=== PATIENT | female | born 1945 | race Two or more races ===

== ENCOUNTER 2020-02-02 18:56 | Emergency (ER) | payer MEDICARE ==
[~2020-02-02] VITALS: Ht 160 cm; Wt 55.0 kg
[2020-02-02 19:44] LABS: BASOPHILS # (AUTO) 0.04 x10^3/uL (0-0.1); BASOPHILS % (AUTO) 1 % (0-1); EOSINOPHILS # (AUTO) 0.23 x10^3/uL (0-0.4); EOSINOPHILS % (AUTO) 3 % (1-7); LYMPHOCYTES # (AUTO) 2.25 x10^3/uL (1-3.4); LYMPHOCYTES % (AUTO) 30 % (22-44); MD NO; MEAN CORPUSCULAR HEMOGLOBIN 30.6 pg (27.0-34.8); MEAN CORPUSCULAR HGB CONC 33.6 g/dL (32.4-35.8); MEAN CORPUSCULAR VOLUME 91.1 fL (80-100); MEAN PLATELET VOLUME 9.3 fL (7.4-10.4); MONOCYTES # (AUTO) 0.34 x10^3/uL (0.2-0.8); MONOCYTES % (AUTO) 5 % (2-9); NEUTROPHILS % (AUTO) 62 % (42-75); PLATELET COUNT 206 x10^3/uL (130-400); RED BLOOD COUNT 4.75 x10^6/uL (3.82-5.3); RED CELL DISTRIBUTION WIDTH 12.9 % (9.6-15.2)
[2020-02-02 19:52] LABS: ALBUMIN 3.8 g/dL (3.4-5.0); ANION GAP 7 mmol/L (5-15); CALCIUM 8.9 mg/dL (8.5-10.1); CHLORIDE 105 mmol/L (98-107)
[2020-02-02 19:55] LABS: CREATININE 0.85 mg/dL (0.55-1.02); SALICYLATE LEVEL < 1.7 mg/dL (2.8-20.0)
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
--- NOTE | 2020-02-02 20:10 | NUR ---
Granddaughter Walter Connolly [phone]
--- NOTE | 2020-02-02 21:19 | NUR ---
Patient becoming restless and stating she wants to go home. Advised patient we are waiting for her to speak to a psychiatrist. Patient agreed. Supplied water.
[2020-02-02] MEDS: PLEASE ENTER ALLERGIES MC SCH (21:30)
[2020-02-02] MEDS ORDERED: LORazepam 1MG TABLET PO ONE (21:30)
[2020-02-02] MEDS ORDERED: LORazepam 1MG TABLET ONE (21:45)
[2020-02-02 23:21] LABS: AMPHETAMINE SCREEN, URINE Negative (Negative); BARBITURATE SCREEN, URINE Negative (Negative); BENZODIAZEPINE SCREEN, URINE Negative (Negative); CANNABINOID SCREEN, URINE Negative (Negative); COCAINE SCREEN, URINE Negative (Negative); METHADONE SCREEN, URINE Negative (Negative); OPIATE SCREEN, URINE Negative (Negative)
--- NOTE | 2020-02-03 01:59 | NUR ---
PT RESTING IN BED WITH PT ROOM SI SECURED WITH SITTER AT PT DOOR. BOTTLING ROOM WORKER WILL CONTINUE TO MONITOR PT.
--- NOTE | 2020-02-03 02:19 | NUR ---
FINANCE ADVISOR: PACKET FAXED TO [facility]. AT THIS TIME PT. SELF PAY ONLY.
--- NOTE | 2020-02-03 03:00 | NUR ---
PT RESTING IN BED WITH PT ROOM SI SECURED WITH SITTER AT PT DOOR. ADMINISTRATIVE DIETITIAN WILL CONTINUE TO MONITOR PT.
--- NOTE | 2020-02-03 04:00 | NUR ---
PT RESTING IN BED WITH PT ROOM SI SECURED WITH SITTER AT PT DOOR. FINE UNHAIRER WILL CONTINUE TO MONITOR PT.
--- NOTE | 2020-02-03 04:02 | NUR ---
Olivia tabares in [facility] - 02/03/20 at 0403 by LYNN [id number]
[2020-02-03] MEDS: PLEASE ENTER ALLERGIES MC SCH (05:30)
--- NOTE | 2020-02-03 06:12 | NUR ---
WET END SUPERVISOR: PT. FAMILY CALLED AND WE WERE ABLE TO OBTAIN CORRECT INSURANCE INFORMAION; INSURANCE UPDATED BY REGISTRATION. [facility] SUP CALLED TO LOOK AT PT.
--- NOTE | 2020-02-03 06:12 | NUR ---
PT FAMILY WOULD LIKE TO BE CALLED IF PT GETS TRANSFERED ANYWHERE AT [facility] [phone]
--- NOTE | 2020-02-03 06:27 | NUR ---
PT MOVED TO A HOSPITAL BED AND PROVIDED A EXTRA PILLOW AND BLANKETS.
--- NOTE | 2020-02-03 06:35 | NUR ---
PT AMBULATED TO NEW BED WITHOUT DIFFICULTY
--- NOTE | 2020-02-03 06:57 | NUR ---
REPORT FROM ANDREINA AMBROSE RESTING, SITTER PRESENT
[2020-02-03 07:11] VITALS: BP 128/70
--- NOTE | 2020-02-03 08:07 | NUR ---
GIVEN MEAL TRAY. SITTER PRESENT
--- NOTE | 2020-02-03 08:47 | NUR ---
BREAK RN: PT RESTING IN BED. RICCON. SITTER REMAINS AT BEDSIDE. ROOM REMAINS SECURE.
--- NOTE | 2020-02-03 09:28 | NUR ---
pt sleeping, sitter present
--- NOTE | 2020-02-03 12:30 | NUR ---
REPORT TO TED
[2020-02-03] MEDS ORDERED: LISI10TA2 PO (14:36)
[2020-02-03] MEDS ORDERED: SERT20OR5 PO (14:36)
== END 2020-02-03 13:07 | disposition other institution (70) ==
LOC: ED 20:34
DX: F23 Brief psychotic disorder (principal); F22 Delusional disorders; F98.9 Unspecified behavioral and emotional disorders with onset usually occurring in childhood and adolescence
CPT/HCPCS: 36415; 80048; 80307; 82040; 85025; 99283; 99284

== ENCOUNTER 2020-03-17 16:36 | Emergency (ER) | payer MEDICARE ==
[~2020-03-17] VITALS: Ht 152.4 cm; Wt 50.0 kg
[~2020-03-17 16:36] MED LIST: LISI-167 PO; LISI10TA2 PO; QUET25TA7 PO; SERT20OR5 PO; SERT50TA28 PO; SIMV20TA19 PO
[2020-03-17 17:28] LABS: BASOPHILS # (AUTO) 0.03 x10^3/uL (0-0.1); BASOPHILS % (AUTO) 0 % (0-1); EOSINOPHILS # (AUTO) 0.33 x10^3/uL (0-0.4); EOSINOPHILS % (AUTO) 5 % (1-7); LYMPHOCYTES # (AUTO) 2.07 x10^3/uL (1-3.4); LYMPHOCYTES % (AUTO) 30 % (22-44); MD NO; MEAN CORPUSCULAR HEMOGLOBIN 29.9 pg (27.0-34.8); MEAN CORPUSCULAR HGB CONC 33.2 g/dL (32.4-35.8); MEAN PLATELET VOLUME 10.5 fL (7.4-10.4); MONOCYTES # (AUTO) 0.35 x10^3/uL (0.2-0.8); MONOCYTES % (AUTO) 5 % (2-9); NEUTROPHILS # (AUTO) 4.21 x10^3/uL (1.8-6.8); NEUTROPHILS % (AUTO) 60 % (42-75); PLATELET COUNT 175 x10^3/uL (130-400); RED BLOOD COUNT 4.59 x10^6/uL (3.82-5.3); RED CELL DISTRIBUTION WIDTH 13.2 % (9.6-15.2)
[2020-03-17 17:33] VITALS: BP 138/76
[2020-03-17 17:39] LABS: ALANINE AMINOTRANSFERASE 18 U/L (12-78); ALBUMIN 3.7 g/dL (3.4-5.0); ANION GAP 11 mmol/L (5-15); CALCIUM 8.7 mg/dL (8.5-10.1); CHLORIDE 104 mmol/L (98-107); CREATININE 0.67 mg/dL (0.55-1.02)
[2020-03-17 17:41] LABS: ALKALINE PHOSPHATASE 92 U/L (45-117); BILIRUBIN,TOTAL 1.2 mg/dL (0.2-1.0); TOTAL PROTEIN 8.2 g/dL (6.4-8.2)
[2020-03-17 17:42] LABS: SALICYLATE LEVEL < 1.7 mg/dL (2.8-20.0)
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
[2020-03-17 18:32] LABS: AMPHETAMINE SCREEN, URINE Negative (Negative); BARBITURATE SCREEN, URINE Negative (Negative); BENZODIAZEPINE SCREEN, URINE Negative (Negative); CANNABINOID SCREEN, URINE Negative (Negative); COCAINE SCREEN, URINE Negative (Negative); METHADONE SCREEN, URINE Negative (Negative); OPIATE SCREEN, URINE Negative (Negative)
== END 2020-03-17 20:53 | disposition home or self-care (01) ==
LOC: ED 20:30
DX: R10.13 Epigastric pain (principal); F39 Unspecified mood [affective] disorder; F91.8 Other conduct disorders; I10 Essential (primary) hypertension; E11.9 Type 2 diabetes mellitus without complications
CPT/HCPCS: 36415; 76700; 80053; 80307; 85025; 99284